=== PATIENT | female | born 1965 | race American Indian/Alaskan Native ===

== ENCOUNTER 2017-02-06 00:46 | Inpatient (IN) | payer SELFPAY ==
[2017-02-06 02:36] LABS: Basophils % (Auto) 0.5 % (0.0-1.8); Eosinophils % (Auto) 1.9 % (0.0-4.3); Hematocrit 41.8 % (30.3-42.9); Hemoglobin 14.1 gm/dl (10.1-14.3); Mean Corpuscular HGB Conc 34 % (30-34); Mean Corpuscular Hemoglobin 30 pg (28-32); Mean Corpuscular Volume 90 fl (79-97); Platelet Count 139 K/mm3 (140-440); Red Blood Count 4.67 M/mm3 (3.65-5.03); White Blood Count 7.7 K/mm3 (4.5-11.0)
[2017-02-06 02:46] LABS: INR 0.94 (0.87-1.13)
[2017-02-06 02:47] LABS: Partial Thromboplastin Time 28.2 Sec. (24.2-36.6)
[2017-02-06 03:23] LABS: Anion Gap 16 mmol/L; BUN/Creatinine Ratio 20; Blood Urea Nitrogen 14 mg/dL (7-17); Calcium 10.3 mg/dL (8.4-10.2); Carbon Dioxide 24 mmol/L (22-30); Chloride 106.5 mmol/L (98-107); Glucose 102 mg/dL (65-100); Potassium 4.3 mmol/L (3.6-5.0); Sodium 142 mmol/L (137-145)
--- NOTE | 2017-02-06 03:26 | Cat Scan Report ---
FINAL REPORT EXAM: CT HEAD/BRAIN WO CON HISTORY: neuro deficits \T\lt; 6hrs or sx present upon awakening TECHNIQUE: Routine axial imaging was obtained the brain without IV contrast. FINDINGS: There are no attenuation abnormalities. The ventricular system is appropriate in size and is symmetric. The visualized sinuses are clear. The mastoid air cells are well pneumatized. IMPRESSION: Within normal limits.
[2017-02-06 04:08] LABS: Bilirubin,Urine NEG (Negative); Blood,Urine NEG (Negative); Ketones,Urine NEG (Negative); Leukocyte Esterase,Urine NEG (Negative); Nitrite,Urine NEG (Negative); Protein,Urine <15 mg/dL mg/dL (Negative)
[2017-02-06 11:03] LABS: Bilirubin,Urine NEG (Negative); Blood,Urine NEG (Negative); Ketones,Urine NEG (Negative); Leukocyte Esterase,Urine NEG (Negative); Mucus,Urine FEW /HPF; Nitrite,Urine NEG (Negative); Protein,Urine <15 mg/dL mg/dL (Negative); Urobilinogen,Urine < 2.0 mg/dL (<2.0); WBC,Urine < 1.0 /HPF (0.0-6.0)
--- NOTE | 2017-02-06 13:54 | Emergency Department Report ---
ED General Adult HPI - General Chief complaint: Neuro Symptoms/Deficit Stated complaint: L LEG SWOLLEN & HEADACHE Time Seen by Provider: 02/06/17 09:45 Source: patient Mode of arrival: Ambulatory Limitations: No Limitations - History of Present Illness Initial comments: Patient states that she's been having episodes of left sided numbness for the past week. She states these episodes last for about a minute or 2. According to the triage the episodes were weakness and numbness. However the patient tells me that she actually can move her left side fine although she feels as if it is "freezing up". By freezing up she states it is numb. In addition she now presents to the emergency department with left leg pain and swelling. She' s had no recent trauma. She states she does have a family history of DVT. She has no prior personal history of VTE. She denies headache. She denies fever or chills. Prior to my encounter with the patient had screening tests ordered these included a d-dimer which was resulted at greater than 5000. -: Gradual, week(s) Location: left, lower extremity Radiation: non-radiation Severity scale (0 -10): 0 Quality: aching Consistency: intermittent Improves with: none Worsens with: none Associated Symptoms: denies other symptoms - Related Data Home Medications Medication Instructions Recorded Confirmed Last Taken No Known Home Medications [No 02/06/17 02/06/17 Unknown Reported Home Medications] Allergies Allergy/AdvReac Type Severity Reaction Status Date / Time No Known Allergies Allergy Unverified 02/06/17 01:52 ED Review of Systems ROS: Stated complaint: L LEG SWOLLEN & HEADACHE Other details as noted in HPI Constitutional: denies: chills, fever Eyes: denies: eye pain, eye discharge, vision change ENT: denies: ear pain, throat pain Respiratory: denies: cough, shortness of breath, wheezing Cardiovascular: denies: chest pain, palpitations Endocrine: no symptoms reported Gastrointestinal: denies: abdominal pain, nausea, diarrhea Genitourinary: denies: urgency, dysuria, discharge Musculoskeletal: as per HPI, other. denies: back pain, joint swelling, arthralgia Skin: denies: rash, lesions Neurological: as per HPI, numbness. denies: headache, weakness, paresthesias Psychiatric: denies: anxiety, depression Hematological/Lymphatic: denies: easy bleeding, easy bruising ED Past Medical Hx - Past Medical History Previous Medical History?: No - Surgical History Past Surgical History?: Yes Additional Surgical History: c-sect X2, partial Hysterectomy - Social History Smoking Status: Current Every Day Smoker Substance Use Type: None - Medications Home Medications: Home Medications Medication Instructions Recorded Confirmed Last Taken Type No Known Home Medications [No 02/06/17 02/06/17 Unknown History Reported Home Medications] ED Physical Exam - General Limitations: No Limitations General appearance: alert, in no apparent distress - Head Head exam: Present: atraumatic, normocephalic - Eye Eye exam: Present: normal appearance. Absent: scleral icterus - ENT ENT exam: Present: mucous membranes moist - Neck Neck exam: Present: normal inspection - Respiratory Respiratory exam: Present: normal lung sounds bilaterally. Absent: respiratory distress - Cardiovascular Cardiovascular Exam: Present: regular rate, normal rhythm. Absent: systolic murmur, diastolic murmur, rubs, gallop - GI/Abdominal GI/Abdominal exam: Present: soft, normal bowel sounds. Absent: distended, tenderness, guarding, rebound, rigid - Extremities Exam Extremities exam: Present: normal inspection, calf tenderness (some mild calf tenderness), other (dorsalis pedis and posterior tibial pulses are present and symmetrical normal in intensity.) - Back Exam Back exam: Present: normal inspection - Neurological Exam Neurological exam: Present: alert, oriented X3, CN II-XII intact, other (NIH stroke score is 0). Absent: motor sensory deficit - Psychiatric Psychiatric exam: Present: normal affect, normal mood - Skin Skin exam: Present: warm, dry, intact, normal color. Absent: rash ED Course Vital Signs 02/06/17 02/06/17 02/06/17 01:19 01:43 08:48 Temperature 99.2 F 97.9 F Pulse Rate 80 64 Respiratory 18 14 Rate Blood Pressure 131/89 131/89 98/70 Blood Pressure [Left] O2 Sat by Pulse 98 98 Oximetry 02/06/17 02/06/17 02/06/17 09:30 09:32 09:45 Temperature 98.1 F Pulse Rate 65 Respiratory 16 Rate Blood Pressure 126/73 Blood Pressure 131/85 [Left] O2 Sat by Pulse 100 100 99 Oximetry 02/06/17 02/06/17 02/06/17 10:00 10:16 10:30 Temperature Pulse Rate 74 Respiratory 21 Rate Blood Pressure 120/73 120/73 118/65 Blood Pressure [Left] O2 Sat by Pulse 94 96 97 Oximetry 02/06/17 10:32 Temperature Pulse Rate Respiratory 18 Rate Blood Pressure Blood Pressure [Left] O2 Sat by Pulse 99 Oximetry - Reevaluation(s) Reevaluation #1: The patient's elevated d-dimer is quite enigmatic. Her Doppler exam of her leg was negative. I really don't think that she is having something like dural sinus thrombosis or even TIAs appear to be likely. However with this kind of d- dimer I have ordered an MRA MRV and MRI of the brain. I have discussed case with Dr. Chavez who is admitted the patient to the hospitalist service. He requested telemetry. 02/06/17 13:52 ED Medical Decision Making - Lab Data Result diagrams: 02/06/17 01:58 02/06/17 01:58 Laboratory Results - last 24 hr 02/06/17 02/06/17 02/06/17 01:54 01:58 01:58 WBC 7.7 RBC 4.67 Hgb 14.1 Hct 41.8 MCV 90 MCH 30 MCHC 34 RDW 14.0 Plt Count 139 L Lymph % (Auto) 48.9 H [place] % (Auto) 6.2 Eos % (Auto) 1.9 Baso % (Auto) 0.5 Lymph # 3.8 [place] # 0.5 Eos # 0.1 Baso # 0.0 Seg Neutrophils % 42.5 Seg Neutrophils # 3.3 PT 13.1 INR 0.94 APTT 28.2 Thrombin Time 13.1 L D-Dimer 5691.68 H Sodium Potassium Chloride Carbon Dioxide Anion Gap BUN Creatinine Estimated GFR BUN/Creatinine Ratio Glucose POC Glucose Lactic Acid Calcium Troponin T Urine Color Yellow Urine Turbidity Clear Urine pH 6.0 Ur Specific [place] 1.021 Urine Protein <15 mg/dl Urine Glucose (UA) Neg Urine Ketones Neg Urine Blood Neg Urine Nitrite Neg Urine Bilirubin Neg Urine Urobilinogen 2.0 Ur Leukocyte Esterase Neg Urine WBC (Auto) 1.0 Urine RBC (Auto) 2.0 U Epithel Cells (Auto) 7.0 Urine Mucus 02/06/17 02/06/17 02/06/17 01:58 02:34 10:07 WBC RBC Hgb Hct MCV MCH MCHC RDW Plt Count Lymph % (Auto) [place] % (Auto) Eos % (Auto) Baso % (Auto) Lymph # [place] # Eos # Baso # Seg Neutrophils % Seg Neutrophils # PT INR APTT Thrombin Time D-Dimer Sodium 142 Potassium 4.3 Chloride 106.5 Carbon Dioxide 24 Anion Gap 16 BUN 14 Creatinine 0.7 Estimated GFR > 60 BUN/Creatinine Ratio 20 Glucose 102 H POC Glucose 110 H Lactic Acid 0.90 Calcium 10.3 H Troponin T < 0.010 Urine Color Urine Turbidity Urine pH Ur Specific [place] Urine Protein Urine Glucose (UA) Urine Ketones Urine Blood Urine Nitrite Urine Bilirubin Urine Urobilinogen Ur Leukocyte Esterase Urine WBC (Auto) Urine RBC (Auto) U Epithel Cells (Auto) Urine Mucus 02/06/17 10:32 WBC RBC Hgb Hct MCV MCH MCHC RDW Plt Count Lymph % (Auto) [place] % (Auto) Eos % (Auto) Baso % (Auto) Lymph # [place] # Eos # Baso # Seg Neutrophils % Seg Neutrophils # PT INR APTT Thrombin Time D-Dimer Sodium Potassium Chloride Carbon Dioxide Anion Gap BUN Creatinine Estimated GFR BUN/Creatinine Ratio Glucose POC Glucose Lactic Acid Calcium Troponin T Urine Color Yellow Urine Turbidity Clear Urine pH 6.0 Ur Specific [place] 1.008 Urine Protein <15 mg/dl Urine Glucose (UA) Neg Urine Ketones Neg Urine Blood Neg Urine Nitrite Neg Urine Bilirubin Neg Urine Urobilinogen < 2.0 Ur Leukocyte Esterase Neg Urine WBC (Auto) < 1.0 Urine RBC (Auto) 3.0 U Epithel Cells (Auto) 2.0 Urine Mucus Few - EKG Data EKG shows normal: sinus rhythm, axis, intervals, QRS complexes, ST-T waves - EKG Data Interpretation: other (1 PVC) - Radiology Data Radiology results: report reviewed Critical care attestation.: If time is entered above; I have spent that time in minutes in the direct care of this critically ill patient, excluding procedure time. ED Disposition Clinical Impression: Hemisensory loss, Elevated d-dimer, Leg pain, left Disposition: OP ADMIT IP TO THIS HOSP Is pt being admited?: Yes Does the pt Need Aspirin: Yes Condition: Stable Referrals: PRIMARY CARE, [Primary Care Provider] - 3-5 Days Time of Disposition: 13:55
--- NOTE | 2017-02-06 15:57 | Magnetic Resonance Report ---
MRI of the brain without contrast. History: Left-sided hemisensory numbness and elevated d-dimer. Procedure: Routine protocol without contrast. Findings: The posterior fossa is normal. The ventricles are normal in size and contour. There is no restricted diffusion. The patel-white matter junction is normal. There are no masses or extra-axial collections. The pituitary gland is normal. The cerebellar tonsils are in normal location. The visualized extracranial structures are normal. Impression: Normal study.
--- NOTE | 2017-02-06 15:59 | Magnetic Resonance Report ---
MRA of the [place]. History: Left sided hemisensory numbness and elevated d-dimer. Procedure: 3-D [id number] technique. Findings: The visualized distal internal carotid arteries appear normal. The anterior and middle cerebral arteries appear normal. The left vertebral artery is dominant. The basilar artery and posterior circulation are unremarkable. There is no evidence of aneurysm or AVM. Impression: Normal study.
[2017-02-06] MEDS ORDERED: MILK OF MAGNESIA PO PRN (16:38)
[2017-02-06] MEDS ORDERED: TYLENOL PO PRN (16:38)
[2017-02-06] MEDS ORDERED: DULCOLAX PR PRN (16:38)
[2017-02-06] MEDS ORDERED: MORPHINE IV PRN (16:38)
[2017-02-06] MEDS ORDERED: ZOFRAN IV PRN (16:38)
--- NOTE | 2017-02-06 16:38 | History and Physical Report ---
History of Present Illness Date of examination: 02/06/17 Date of admission: 02/06/17 13:57 Chief complaint: CC L side Numbness 1 week - intermittent in nature History of present illness: History of Present Illness 51 y/o AAF with no sig PMH states that she's been having episodes of left sided numbness for the past week. Recurrent numbness on left side intermittent in nature for past one week.Patient concerned about stroke.No fever /chills.No recent travel.1ppd smoker - Past Medical History Previous Medical History?: No - Surgical History Past Surgical History?: Yes Additional Surgical History: c-sect X2, partial Hysterectomy - Social History Smoking Status: Current Every Day Smoker Substance Use Type: None Fam hx Htn - Medications Home Medications: Home Medications Medication Instructions Recorded Confirmed Last Taken Type No Known Home Medications [No 02/06/17 02/06/17 Unknown History Reported Home Medications] Review of Systems ROS: Stated complaint: L LEG SWOLLEN & HEADACHE Other details as noted in HPI Constitutional: denies: chills, fever Eyes: denies: eye pain, eye discharge, vision change ENT: denies: ear pain, throat pain Respiratory: denies: cough, shortness of breath, wheezing Cardiovascular: denies: chest pain, palpitations Endocrine: no symptoms reported Gastrointestinal: denies: abdominal pain, nausea, diarrhea Genitourinary: denies: urgency, dysuria, discharge Musculoskeletal: as per HPI, other. denies: back pain, joint swelling, arthralgia Skin: denies: rash, lesions Neurological: as per HPI, numbness. denies: headache, weakness, paresthesias Psychiatric: denies: anxiety, depression Hematological/Lymphatic: denies: easy bleeding, easy bruising Medications and Allergies Allergies Allergy/AdvReac Type Severity Reaction Status Date / Time No Known Allergies Allergy Unverified 02/06/17 01:52 Home Medications Medication Instructions Recorded Confirmed Last Taken Type No Known Home Medications [No 02/06/17 02/06/17 Unknown History Reported Home Medications] Active Meds: Active Medications Aspirin (Aspirin) 325 mg PO QDAY JOSEPH Exam - Constitutional Vitals: Temp Pulse Resp BP Pulse Ox 98.1 F 74 18 118/65 99 02/06/17 09:32 02/06/17 10:30 02/06/17 10:32 02/06/17 10:30 02/06/17 10:32 General appearance: Present: no acute distress, well-nourished - EENT Eyes: Present: PERRL ENT: hearing intact, clear oral mucosa - Neck Neck: Present: supple, normal ROM - Respiratory Respiratory effort: normal Respiratory: bilateral: CTA - Cardiovascular Heart rate: 70 Rhythm: regular Heart Sounds: Present: S1 & S2. Absent: rub, click - Extremities Extremities: pulses symmetrical, No edema Peripheral Pulses: within normal limits - Abdominal General gastrointestinal: Present: soft, non-tender, non-distended, normal bowel sounds Female genitourinary: Present: normal - Integumentary Integumentary: Present: clear, warm, dry - Musculoskeletal Musculoskeletal: gait normal, strength equal bilaterally - Psychiatric Psychiatric: appropriate mood/affect, intact judgment & insight - Neurologic Neurologic: CNII-XII intact, moves all extremities - Allied Health Allied health notes reviewed: nursing, case management Results - Labs CBC & Chem 7: 02/07/17 05:26 02/07/17 05:26 Labs: Laboratory Last Values WBC 7.7 K/mm3 (4.5-11.0) 02/06/17 01:58 RBC 4.67 M/mm3 (3.65-5.03) 02/06/17 01:58 Hgb 14.1 gm/dl (10.1-14.3) 02/06/17 01:58 Hct 41.8 % (30.3-42.9) 02/06/17 01:58 MCV 90 fl (79-97) 02/06/17 01:58 MCH 30 pg (28-32) 02/06/17 01:58 MCHC 34 % (30-34) 02/06/17 01:58 RDW 14.0 % (13.2-15.2) 02/06/17 01:58 Plt Count 139 K/mm3 (140-440) L 02/06/17 01:58 Lymph % (Auto) 48.9 % (13.4-35.0) H 02/06/17 01:58 Carbon % (Auto) 6.2 % (0.0-7.3) 02/06/17 01:58 Eos % (Auto) 1.9 % (0.0-4.3) 02/06/17 01:58 Baso % (Auto) 0.5 % (0.0-1.8) 02/06/17 01:58 Lymph # 3.8 K/mm3 (1.2-5.4) 02/06/17 01:58 Carbon # 0.5 K/mm3 (0.0-0.8) 02/06/17 01:58 Eos # 0.1 K/mm3 (0.0-0.4) 02/06/17 01:58 Baso # 0.0 K/mm3 (0.0-0.1) 02/06/17 01:58 Seg Neutrophils % 42.5 % (40.0-70.0) 02/06/17 01:58 Seg Neutrophils # 3.3 K/mm3 (1.8-7.7) 02/06/17 01:58 PT 13.1 Sec. (12.2-14.9) 02/06/17 01:58 INR 0.94 (0.87-1.13) 02/06/17 01:58 APTT 28.2 Sec. (24.2-36.6) 02/06/17 01:58 Thrombin Time 13.1 Sec. (15.1-19.6) L 02/06/17 01:58 D-Dimer 5691.68 ng/mlDDU (0-234) H 02/06/17 01:58 Sodium 142 mmol/L (137-145) 02/06/17 01:58 Potassium 4.3 mmol/L (3.6-5.0) 02/06/17 01:58 Chloride 106.5 mmol/L (98-107) 02/06/17 01:58 Carbon Dioxide 24 mmol/L (22-30) 02/06/17 01:58 Anion Gap 16 mmol/L 02/06/17 01:58 BUN 14 mg/dL (7-17) 02/06/17 01:58 Creatinine 0.7 mg/dL (0.7-1.2) 02/06/17 01:58 Estimated GFR > 60 ml/min 02/06/17 01:58 BUN/Creatinine Ratio 20 % 02/06/17 01:58 Glucose 102 mg/dL (65-100) H 02/06/17 01:58 POC Glucose 110 (70-105) H 02/06/17 10:07 Lactic Acid 0.90 mmol/L (0.7-2.0) 02/06/17 02:34 Calcium 10.3 mg/dL (8.4-10.2) H 02/06/17 01:58 Troponin T < 0.010 ng/mL (0.00-0.029) 02/06/17 01:58 Urine Color Yellow (Yellow) 02/06/17 10:32 Urine Turbidity Clear (Clear) 02/06/17 10:32 Urine pH 6.0 (5.0-7.0) 02/06/17 10:32 Ur Specific [place] 1.008 (1.003-1.030) 02/06/17 10:32 Urine Protein <15 mg/dl mg/dL (Negative) 02/06/17 10:32 Urine Glucose (UA) Neg mg/dL (Negative) 02/06/17 10:32 Urine Ketones Neg mg/dL (Negative) 02/06/17 10:32 Urine Blood Neg (Negative) 02/06/17 10:32 Urine Nitrite Neg (Negative) 02/06/17 10:32 Urine Bilirubin Neg (Negative) 02/06/17 10:32 Urine Urobilinogen < 2.0 mg/dL (<2.0) 02/06/17 10:32 Ur Leukocyte Esterase Neg (Negative) 02/06/17 10:32 Urine WBC (Auto) < 1.0 /HPF (0.0-6.0) 02/06/17 10:32 Urine RBC (Auto) 3.0 /HPF (0.0-6.0) 02/06/17 10:32 U Epithel Cells (Auto) 2.0 /HPF (0-13.0) 02/06/17 10:32 Urine Mucus Few /HPF 02/06/17 10:32 - Imaging and Cardiology EKG: report reviewed Imaging and Cardiology: MRI/MRA brain/neck negative Assessment and Plan Advance Directives: Yes (FC) VTE prophylaxis?: Chemical Plan of care discussed with patient/family: Yes - Patient Problems (1) TIA (transient ischemic attack) Current Visit: Yes Status: Acute Qualifiers: Transient cerebral ischemia type: unspecified Qualified Code(s): G45.9 - Transient cerebral ischemic attack, unspecified Plan to address problem: MRI MRA done.ECHO and carotid duplex scan pending (2) Elevated d-dimer Current Visit: Yes Status: Acute Plan to address problem: Non specific.No PE definitely (3) Nicotine dependence Current Visit: Yes Status: Chronic Qualifiers: Nicotine product type: cigarettes Substance use status: S Plan to address problem: Nicoderm patch initiated (4) DVT prophylaxis Current Visit: Yes Status: Acute Plan to address problem: on Lovenox
[2017-02-06] MEDS: ASPIRIN PO SCH (16:41)
--- NOTE | 2017-02-06 17:41 | Vascular Lab Report ---
Left Lower Extremity Venous Duplex Study: Reason for Exam: Pain of the left lower extremity. Comments on the Right: A limited duplex study was done of the proximal veins of the right lower extremity. All veins visualized are freely compressible without evidence of internal echogenicity. Flow is spontaneous and phasic throughout. No evidence of acute or chronic thrombus is seen in any of the vessels visualized. Comments on the Left: All veins visualized are freely compressible without evidence of internal echogenicity. Flow is spontaneous and phasic throughout. No evidence of acute or chronic thrombus is seen in any of the vessels visualized. Impression: No evidence of acute or chronic deep venous thrombosis in the left lower extremity.
[2017-02-06] MEDS ORDERED: APRESOLINE IV PRN (21:00)
[2017-02-06] MEDS ORDERED: SODIUM CHLORIDE FLUSH SYRINGE 10 ML IV PRN (21:00)
[2017-02-06] MEDS: ZOCOR PO SCH (22:34)
[2017-02-07 06:06] LABS: Basophils % (Auto) 0.5 % (0.0-1.8); Eosinophils % (Auto) 2.1 % (0.0-4.3); Hematocrit 41.6 % (30.3-42.9); Hemoglobin 14.3 gm/dl (10.1-14.3); Mean Corpuscular HGB Conc 34 % (30-34); Mean Corpuscular Hemoglobin 30 pg (28-32); Mean Corpuscular Volume 88 fl (79-97); Platelet Count 126 K/mm3 (140-440); Red Cell Distribution Width 13.8 % (13.2-15.2); White Blood Count 5.5 K/mm3 (4.5-11.0)
[2017-02-07 06:30] LABS: Alanine Aminotransferase 13 units/L (7-56); Albumin 3.6 g/dL (3.9-5); Albumin/Globulin Ratio 1.2 %; Alkaline Phosphatase 62 units/L (35-129); Anion Gap 16 mmol/L; BUN/Creatinine Ratio 22; Blood Urea Nitrogen 11 mg/dL (7-17); Calcium 9.6 mg/dL (8.4-10.2); Carbon Dioxide 22 mmol/L (22-30); Chloride 104.5 mmol/L (98-107); Cholesterol 180 mg/dL (50-199); Glucose 96 mg/dL (65-100); HDL Cholesterol 35 mg/dL (40-59); LDL Cholesterol,Direct 119 mg/dL (50-130); Potassium 4.5 mmol/L (3.6-5.0); Sodium 138 mmol/L (137-145); Total Protein 6.6 g/dL (6.3-8.2); Triglycerides 131 mg/dL (2-149)
[2017-02-07] MEDS: PERCOCET 5/325 PO PRN ×2 (08:39→19:48)
--- NOTE | 2017-02-07 10:15 | Progress Note ---
Assessment and Plan Assessment and plan: TIA. MRI/MRA negative. Follow-up carotid ultrasound and echocardiogram. ? Peripheral neuropathy. Start Neurontin 3 times a day Nicotine dependence. Continue NicoDerm patch. Counseled on smoking cessation. Disposition. Anticipate discharge if carotid ultrasound, echocardiogram, negative. History Interval history: Patient complains of left lower extremity numbness. No weakness Hospitalist Physical - Constitutional Vitals: Temp Pulse Resp BP Pulse Ox 98.4 F 62 16 114/52 97 02/07/17 08:05 02/07/17 08:05 02/07/17 08:05 02/07/17 08:05 02/07/17 08:05 General appearance: Present: no acute distress, well-nourished - EENT Eyes: Present: PERRL, EOM intact ENT: hearing intact, clear oral mucosa, dentition normal - Neck Neck: Present: supple, normal ROM - Respiratory Respiratory effort: normal Respiratory: bilateral: CTA - Cardiovascular Rhythm: regular Heart Sounds: Present: S1 & S2. Absent: gallop, rub - Extremities Extremities: no ischemia, No edema, Full ROM - Abdominal General gastrointestinal: soft, non-tender, non-distended, normal bowel sounds - Integumentary Integumentary: Present: clear, warm, dry - Neurologic Neurologic: CNII-XII intact, moves all extremities Results - Labs CBC & Chem 7: 02/07/17 05:26 02/07/17 05:26 Labs: Laboratory Last Values WBC 5.5 K/mm3 (4.5-11.0) 02/07/17 05:26 RBC 4.70 M/mm3 (3.65-5.03) 02/07/17 05:26 Hgb 14.3 gm/dl (10.1-14.3) 02/07/17 05:26 Hct 41.6 % (30.3-42.9) 02/07/17 05:26 MCV 88 fl (79-97) 02/07/17 05:26 MCH 30 pg (28-32) 02/07/17 05:26 MCHC 34 % (30-34) 02/07/17 05:26 RDW 13.8 % (13.2-15.2) 02/07/17 05:26 Plt Count 126 K/mm3 (140-440) L 02/07/17 05:26 Lymph % (Auto) 44.4 % (13.4-35.0) H 02/07/17 05:26 [place] % (Auto) 7.3 % (0.0-7.3) 02/07/17 05:26 Eos % (Auto) 2.1 % (0.0-4.3) 02/07/17 05:26 Baso % (Auto) 0.5 % (0.0-1.8) 02/07/17 05:26 Lymph # 2.5 K/mm3 (1.2-5.4) 02/07/17 05:26 [place] # 0.4 K/mm3 (0.0-0.8) 02/07/17 05:26 Eos # 0.1 K/mm3 (0.0-0.4) 02/07/17 05:26 Baso # 0.0 K/mm3 (0.0-0.1) 02/07/17 05:26 Seg Neutrophils % 45.7 % (40.0-70.0) 02/07/17 05:26 Seg Neutrophils # 2.5 K/mm3 (1.8-7.7) 02/07/17 05:26 PT 13.1 Sec. (12.2-14.9) 02/06/17 01:58 INR 0.94 (0.87-1.13) 02/06/17 01:58 APTT 28.2 Sec. (24.2-36.6) 02/06/17 01:58 Thrombin Time 13.1 Sec. (15.1-19.6) L 02/06/17 01:58 D-Dimer 5691.68 ng/mlDDU (0-234) H 02/06/17 01:58 Sodium 138 mmol/L (137-145) 02/07/17 05:26 Potassium 4.5 mmol/L (3.6-5.0) 02/07/17 05:26 Chloride 104.5 mmol/L (98-107) 02/07/17 05:26 Carbon Dioxide 22 mmol/L (22-30) 02/07/17 05:26 Anion Gap 16 mmol/L 02/07/17 05:26 BUN 11 mg/dL (7-17) 02/07/17 05:26 Creatinine 0.5 mg/dL (0.7-1.2) L 02/07/17 05:26 Estimated GFR > 60 ml/min 02/07/17 05:26 BUN/Creatinine Ratio 22 % 02/07/17 05:26 Glucose 96 mg/dL (65-100) 02/07/17 05:26 POC Glucose 110 (70-105) H 02/06/17 10:07 Hemoglobin A1c 5.6 % (4-6) 02/07/17 05:26 Lactic Acid 0.90 mmol/L (0.7-2.0) 02/06/17 02:34 Calcium 9.6 mg/dL (8.4-10.2) 02/07/17 05:26 Total Bilirubin 0.60 mg/dL (0.1-1.2) 02/07/17 05:26 AST 17 units/L (5-40) 02/07/17 05:26 ALT 13 units/L (7-56) 02/07/17 05:26 Alkaline Phosphatase 62 units/L (35-129) 02/07/17 05:26 Troponin T < 0.010 ng/mL (0.00-0.029) 02/06/17 01:58 Total Protein 6.6 g/dL (6.3-8.2) 02/07/17 05:26 Albumin 3.6 g/dL (3.9-5) L 02/07/17 05:26 Albumin/Globulin Ratio 1.2 % 02/07/17 05:26 Triglycerides 131 mg/dL (2-149) 02/07/17 05:26 Cholesterol 180 mg/dL (50-199) 02/07/17 05:26 LDL Cholesterol Direct 119 mg/dL (50-130) 02/07/17 05:26 HDL Cholesterol 35 mg/dL (40-59) L 02/07/17 05:26 Cholesterol/HDL Ratio 5.14 % 02/07/17 05:26 Urine Color Yellow (Yellow) 02/06/17 10:32 Urine Turbidity Clear (Clear) 02/06/17 10:32 Urine pH 6.0 (5.0-7.0) 02/06/17 10:32 Ur Specific [place] 1.008 (1.003-1.030) 02/06/17 10:32 Urine Protein <15 mg/dl mg/dL (Negative) 02/06/17 10:32 Urine Glucose (UA) Neg mg/dL (Negative) 02/06/17 10:32 Urine Ketones Neg mg/dL (Negative) 02/06/17 10:32 Urine Blood Neg (Negative) 02/06/17 10:32 Urine Nitrite Neg (Negative) 02/06/17 10:32 Urine Bilirubin Neg (Negative) 02/06/17 10:32 Urine Urobilinogen < 2.0 mg/dL (<2.0) 02/06/17 10:32 Ur Leukocyte Esterase Neg (Negative) 02/06/17 10:32 Urine WBC (Auto) < 1.0 /HPF (0.0-6.0) 02/06/17 10:32 Urine RBC (Auto) 3.0 /HPF (0.0-6.0) 02/06/17 10:32 U Epithel Cells (Auto) 2.0 /HPF (0-13.0) 02/06/17 10:32 Urine Mucus Few /HPF 02/06/17 10:32
[2017-02-07] MEDS: ASPIRIN PO SCH (11:00)
[2017-02-07] MEDS: NEURONTIN PO SCH ×2 (14:54→21:26)
[2017-02-07] MEDS: ZOCOR PO SCH (21:26)
[2017-02-08] MEDS: NEURONTIN PO SCH (05:24)
--- NOTE | 2017-02-08 09:31 | Discharge Summary ---
Providers - Providers Date of Admission: 02/06/17 13:57 Date of discharge: 02/08/17 Attending physician: JUAN ALFONSO 02/06/17 21:00 Occupational Therapy Evaluate and Treat [CONS] Routine Comment: Reason For Exam: Neuro deficits Physical Therapy Evaluation and Treat [CONS] Routine Comment: Reason For Exam: Neuro deficits Primary care physician: [employer] Hospitalization Reason for admission: LLE numbness Condition: Stable Hospital course: 51 y/o AAF with no sig PMH states that she's been having episodes of left sided numbness for the past week. Recurrent numbness on left side intermittent in nature for past one week. Patient was concerned about stroke and thus presented to the emergency room. Patient denies fever /chills. No recent travel. patient does have history of tobacco abuse with 1ppd smoker. Patient was admitted with diagnosis of CVA/TIA. Patient underwent MRI/MRA was found to be negative. Patient also underwent echocardiogram which is pending and will be followed up as an outpatient. Patient was treated with a trial of Neurontin with some improvement. Patient is felt to have received maximum hospital benefit. Dedicated discharge on 35 minutes. Follow-up with neurology as an outpatient. Disposition: DC-01 TO HOME OR SELFCARE Time spent for discharge: 32 Core Measure Documentation - Palliative Care Palliative Care/ Comfort Measures: Not Applicable - Core Measures Any of the following diagnoses?: stroke - Stroke Discharge Requirements Statin for LDL = or >70 mg/dl on DC: Yes Anticoag for atrial fib/atrial flutter: Not Applicable Antithrombotic for ischemic stroke: Yes Exam - Constitutional Vitals: Temp Pulse Resp BP Pulse Ox 97.7 F 69 17 101/54 97 02/08/17 05:27 02/08/17 05:27 02/08/17 05:27 02/08/17 05:27 02/08/17 05:27 General appearance: Present: no acute distress, well-nourished - EENT Eyes: Present: PERRL ENT: hearing intact, clear oral mucosa - Neck Neck: Present: supple, normal ROM - Respiratory Respiratory effort: normal Respiratory: bilateral: CTA - Cardiovascular Heart Sounds: Present: S1 & S2. Absent: rub, click - Extremities Extremities: pulses symmetrical, No edema Peripheral Pulses: within normal limits - Abdominal General gastrointestinal: Present: soft, non-tender, non-distended, normal bowel sounds Female genitourinary: Present: normal - Integumentary Integumentary: Present: clear, warm, dry - Musculoskeletal Musculoskeletal: gait normal, strength equal bilaterally - Psychiatric Psychiatric: appropriate mood/affect, intact judgment & insight - Neurologic Neurologic: CNII-XII intact, moves all extremities Plan Activity: no restrictions Weight Bearing Status: Full Weight Bearing Diet: low fat, low cholesterol Follow up with: PRIMARY CARE, [Primary Care Provider] - 3-5 Days [place] LUKE MD [Staff Physician] - 7 Days Prescriptions: Aspirin [Aspirin TAB] 325 mg PO QDAY #30 tablet Gabapentin [Neurontin] 100 mg PO Q8HR #90 capsule oxyCODONE /ACETAMINOPHEN [Percocet 5/325 mg] 1 tab PO Q6H PRN #15 tablet PRN Reason: Pain, Moderate (4-6) Simvastatin [Zocor TAB] 20 mg PO QHS #30 tablet
[2017-02-08] MEDS: ASPIRIN PO SCH (09:34)
[2017-02-08] MEDS: PERCOCET 5/325 PO PRN (09:38)
[2017-02-08 09:49] VITALS: BP 105/69
== END 2017-02-08 12:18 | disposition home or self-care (01) | DRG 93 ==
LOC: ED 00:46 → 4A 13:57
PROVIDERS: ADMIT Internal Medicine; ATTEND Hospitalist
DX: R20.0 Anesthesia of skin (principal); M79.605 Pain in left leg; R79.89 Other specified abnormal findings of blood chemistry; F17.200 Nicotine dependence, unspecified, uncomplicated; Z90.710 Acquired absence of both cervix and uterus; Z71.6 Tobacco abuse counseling
CPT/HCPCS: 36415; 70450; 70544; 70551; 80048; 80053; 80061; 81001; 82140; 82962; 83036; 84484; 85025; 85379; 85610; 85670; 85730; 93005; 93010; 93306; 99285; 99406